=== PATIENT | female | born 2000 | race Caucasian/White ===

== ENCOUNTER 2020-04-14 22:08 | Emergency (ER) | payer BC, SELFPAY ==
[2020-04-14 22:09] VITALS: BP 110/62; PULSE 124; RESP 20; TEMP 36.4; O2SAT 100; BMI 26.6
--- NOTE | 2020-04-14 23:08 | US_ITS ---
STUDY: SECOND AND THIRD TRIMESTER OBSTETRICAL ULTRASOUND - LIMITED REASON FOR EXAM: Female, 20 years old VAGINAL DISCHARGE LMP: 12/27/2019. PRIOR ULTRASOUND: None. TECHNIQUE: Transabdominal TECHNICAL QUALITY: Adequate. FINDINGS: There is a single intrauterine fetus. The fetus is in a cephalic presentation. There is demonstrated cardiac activity with a heart rate of 158 bpm. There is a normal amniotic fluid volume. The largest amniotic fluid pocket measures 5.0 cm. The amniotic fluid index (FORTINO) was not measured. The placenta is anterior in location and is not low lying. There are Grade 0 placental changes. The cervix measures 3.1 cm in length. Left ovary was identified and it is normal in appearance, measuring 2.4 x 2.4 x 1.2 cm. The right ovary was not visualized. There are demonstrated adnexal masses or fluid collections. There is no demonstrated free fluid in the posterior cul-de-sac of the pelvis. BIOMETRY: BPD: 3.26 cm.: 16 weeks, 1 days HC: 12.55 cm.: 16 weeks, 2 days AC: 9.94 cm.: 15 weeks, 6 days FL: 1.90 cm.: 15 weeks, 4 days Age by LMP: 15 weeks, 4 days. TOMÁS by LMP: 10/02/2020. age by current US: 16 weeks, 0 days. TOMÁS by current US: 09/29/2020. Estimated weight: 137 grams, +/- 21 grams, 32.4 percentile. There are bilateral choroid plexus cysts, measuring 6.5 mm and 5 mm. Gender: Not demonstrated. US/OB Limited With Biometrics IMPRESSION: Single viable intrauterine gestation of 16 weeks, 0 days with estimated date of delivery of 09/29/2020. Cervix is long and closed. Anterior placenta with no evidence for previa or abruption. Incidental finding of bilateral choroid plexus cysts. Recommend follow-up study with intensive evaluation of anatomy. Electronically Signed: Nilay Brewer MD at 0:16 EDT , Service support ,
--- NOTE | 2020-04-14 23:09 | ED.VIS.GEN ---
History of Present Illness Chief Complaint: Female C/O Informant: Patient Narrative: 20-year-old female currently at 16 weeks gestation presenting with vaginal discharge with small amounts of blood in it for the past 3 weeks. She states her initial [employer] visit was in [place], and she has been trapped in [place] 4 weeks. She states that her ultrasound at 8 weeks showed an intrauterine without ectopic however there was a small rounded hemorrhage at that time. Patient was told to take it easy, not lift heavy objects but she states that is hard to do because she has another child. She describes her discharge as thick. She states she has had BV and yeast infections before. She is with her significant other and does not have concern for STDs. Does state that she was an every day smoker but she quit 2 days ago. Yesterday she tried vaping and it made her feel sick but she has since improved. Past Medical History - Allergies and Home Meds Allergies/Adverse Reactions: Allergies No Known Allergies Allergy (Verified 04/14/20 22:11) Primary Care Physician: [facility] Doctor,Out of [NON-STAFF] - Past Medical History: - - Non-contributory Surgical History: noncontributory Lives: Spouse/ Significant Other Smoking Status: Current some day smoker Alcohol: None Drugs: None Review of Systems General: Denies: Chills, Fever, Sweats Eyes: Denies: Visual changes - bilaterally, Diplopia ENT: Denies: Rhinorrhea, Sore throat Cardiovascular: Denies: Chest pain, Palpitations Respiratory: Denies: Dyspnea, Cough, Dyspnea on exertion Gastrointestinal: Denies: Abdominal pain, Nausea, Vomiting, Diarrhea, Melena, Hematochezia Genitourinary: Reports: - - Genital discharge with small amounts of vaginal bleeding. Denies: Dysuria, Hematuria Musculoskeletal: Denies: Back pain, Extremity Pain Skin: Denies: Rash, Wounds Neurological: Denies: Headache, Weakness, Numbness Physical Exam Vital Signs/Narrative: Vital Signs Temp Pulse Resp BP Pulse Ox 04/14/20 22:09 97.5 F L 124 H 20 H 110/62 100 General: Well nourished, No Acute Distress Head: Normocephalic, Atraumatic Eyes: Perrl, EOMI ENT: Moist mucous membranes, No rhinorrhea Cardiovascular: Regular rate, Regular rhythm, No murmurs Respiratory: No distress, CTA bilaterally Abdomen: Soft, Nontender, - - Gravid : - - Scant discharge in the posterior fornix. The cervical office is closed. There is no visible blood. Back: Nontender, Normal Inspection Extremities: Nontender, No edema Skin: Normal color, No rash Neurological: Alert, Oriented x3 Psychological: Normal affect, Normal Mood Diagnostic/Tx/Re-eval Clinical Impression(s) from Imaging Studies Obstetrics Ultrasound 04/14/20 23:08 IMPRESSION: Single viable intrauterine gestation of 16 weeks, 0 days with estimated date of delivery of 09/29/2020. Cervix is long and closed. Anterior placenta with no evidence for previa or abruption. Incidental finding of bilateral choroid plexus cysts. Recommend follow-up study with intensive evaluation of anatomy. Electronically Signed: Nilay Brewer MD at 0:16 EDT , Service support , Laboratory Data 04/14/20 04/14/20 04/14/20 23:25 23:25 23:25 WBC 10.9 RBC 4.06 L Hgb 12.7 Hct 37.8 MCV 93.1 MCH 31.3 MCHC 33.6 RDW Std Deviation 45.1 H RDW Coeff of Severiano 13.2 Plt Count 240 MPV 9.9 Immature Gran % (Auto) 0.500 Neut % (Auto) 73.4 H Lymph % (Auto) 17.6 L [place] % (Auto) 6.5 Eos % (Auto) 1.6 Baso % (Auto) 0.4 Absolute Neuts (auto) 8.0 H Absolute Lymphs (auto) 1.93 Nucleated RBC % 0 HCG, Quant Urine Color Yellow Urine Clarity Clear Urine pH 6.0 Ur Specific [place] 1.020 Urine Protein Negative Urine Glucose (UA) Normal Urine Ketones 5 H Urine Occult Blood Negative Urine Nitrite Positive H Urine Bilirubin Negative Urine Urobilinogen Normal Ur Leukocyte Esterase 25 H Urine RBC 0 SEEN Urine WBC 0-5 SEEN Ur Squamous Epith Cells 5-10 SEEN Urine Bacteria 2+ Urine Mucus 0 SEEN Chlamydia DNA (NESTOR) Cancelled Chlam trachomat DNA PCR N.gonorrhoeae DNA (PCR) N.gonorrhoeae DNA (NESTOR) Cancelled Blood Type 04/14/20 04/14/20 04/14/20 23:25 23:25 23:25 WBC RBC Hgb Hct MCV MCH MCHC RDW Std Deviation RDW Coeff of Severiano Plt Count MPV Immature Gran % (Auto) Neut % (Auto) Lymph % (Auto) [place] % (Auto) Eos % (Auto) Baso % (Auto) Absolute Neuts (auto) Absolute Lymphs (auto) Nucleated RBC % HCG, Quant 90669 H Urine Color Urine Clarity Urine pH Ur Specific [place] Urine Protein Urine Glucose (UA) Urine Ketones Urine Occult Blood Urine Nitrite Urine Bilirubin Urine Urobilinogen Ur Leukocyte Esterase Urine RBC Urine WBC Ur Squamous Epith Cells Urine Bacteria Urine Mucus Chlamydia DNA (NESTOR) Chlam trachomat DNA PCR Negative N.gonorrhoeae DNA (PCR) Negative N.gonorrhoeae DNA (NESTOR) Blood Type A POSITIVE - Medical Decision Making Presents with concern for continued vaginal bleeding during . She is previously told that she had a subchorionic hemorrhage. On examination she does have a scant amount of discharge in the cervical os is closed. I do not see any blood. Patient is Rh+ so she does not need RhoGam. She is found to have a urinary tract infection and she will be treated for this with Keflex. First dose is given in the ED. I discussed the results of the ultrasound the patient and did express the radiologist concerned that she have a follow-up ultrasound for more detailed anatomy given the findings. Acknowledged understanding. Impression: 1. UTI 2. Threatened miscarriage ED Disposition - Plan for ED Patient: Disposition: Home or Assisted Living Instructions: Understanding Urinary Tract Infections (UTIs), Bleeding During Early Prescriptions: Cephalexin [Keflex] 500 mg PO Q12 #14 cap Prescription Printed Referrals: [facility] Doctor,Out of [NON-STAFF] -
[2020-04-14 23:33] LABS: Absolute Lymphocyte Count 1.93 X10^3/uL (0.83-4.51); Basophil# 0.04 X10^3/uL; Basophil% 0.4 % (0-1); Eosinophil# 0.17 X10^3/uL; Eosinophils% 1.6 % (0-5); Hematocrit 37.8 % (37-47); Hemoglobin 12.7 g/dL (12.0-15.0); Lymphocyte # 1.93 X10^3/ul (4.0); Lymphocyte % 17.6 % (19-41); Mean Corp Hgb Conc 33.6 g/dL (32-36); Mean Corpuscular Hgb 31.3 pg (27.0-32.0); Mean Corpuscular Volume 93.1 fL (81-99); Mean Platelet Vol. 9.9 fl (6.2-12.0); Monocyte# 0.71 X10^3/uL; Monocyte% 6.5 % (0-10); NRBC Flagged by Analyzer 0 % (0-5); Neutrophil # 8.04 X10^3/uL (2.7-7.7); Neutrophil % 73.4 % (47-70); Platelet Count 240 K/mm3 (150-450); RBC Distribution Width CV 13.2 % (11.6-14.6); RBC Distribution Width SD 45.1 fl (35.1-43.9); Red Blood Count 4.06 M/mm3 (4.2-5.4); White Blood Count 10.9 K/mm3 (4.4-11.0)
[2020-04-14 23:34] LABS: Mucous, Urine 0 SEEN /hpf (<or=2+); Red Blood Cells-Urine 0 SEEN /hpf (0-5)
[2020-04-14 23:35] LABS: Color, Urine Yellow (Yellow); Glucose, Dipstick Normal (Normal); Ketone-Dipstick 5 mg/dl (Negative); Leukocyte Esterase-Dipstick 25 /ul (Negative); Nitrite-Dipstick Positive (Negative); Occult Blood-Urine Negative /ul (Negative); Protein-Dipstick Negative (Negative); Urine Bilirubin Dipstick Negative (Negative); Urine Clarity Clear (Clear); Urine Urobilinogen Normal (Normal)
[2020-04-14 23:42] LABS: Bacteria 2+ /hpf (None Seen); Squamous Epithelial Cells - UA 5-10 SEEN /hpf (5-10); White Blood Cells 0-5 SEEN /hpf (0-5)
[2020-04-15 00:14] LABS: hCG Titer Quant., Serum 26858 mIU/mL (1-3)
[2020-04-15 01:07] VITALS: BP 109/71; PULSE 91; RESP 15; O2SAT 98
[2020-04-15 01:09] LABS: Chlamydia Trachomatis by PCR Negative (Negative); Neisserai gonorrhoeae by PCR Negative (Negative); Probe Check PASS; Sample Adequacy Control PASS; Specimen Processing Control PASS
[2020-04-15] MEDS: Cephalexin 250 MG Capsule 500 MG PO (01:55)
[2020-04-15 03:05] VITALS: RESP 14; O2SAT 99
== END 2020-04-15 03:06 | disposition home or self-care (01) ==
PROVIDERS: Emergency Provider Student in an Organized Health Care Education/Training Program
DX: O23.42 Unspecified infection of urinary tract in pregnancy, second trimester (principal); O20.0 Threatened abortion; Z3A.16 16 weeks gestation of pregnancy
CPT/HCPCS: 76816; 81001; 84702; 85025; 86900; 86901; 87086; 87088; 87210; 87491; 87591; 99284; A4216